=== PATIENT | female | born 1990 | race Caucasian/White ===

== ENCOUNTER 2020-06-09 10:30 | Inpatient (IN) | payer OTHER ==
[2020-06-09 11:25] VITALS: BMI 32.9
[2020-06-09] MEDS ORDERED: ELECTROLYTE-148 SOLN 1,000 ML IV SCH (13:30)
[2020-06-09] MEDS ORDERED: DEXTROSE 5%-LACTATED RINGERS 1,000 ML IV SCH (13:30)
[2020-06-09] MEDS ORDERED: CITRIC ACID/SODIUM CITRATE 30 ML UNIT-DOSE CUP PO ONE (13:30)
[2020-06-09] MEDS ORDERED: ELECTROLYTE-148 SOLN 500 ML IV ONE (13:30)
--- NOTE | 2020-06-09 13:34 | HP ---
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: Alzheimer's, CVA, Dementia, Migraine, Multiple Sclerosis, Peripheral Neuropathy, Parkinson's, Seizure, Syncope, TIA, Vertigo, Other Cardiovascular: No: AFIB, Aneurysm, Aortic Insufficiency, Aortic Stenosis, CAD, CHF, Deep Vein Thrombosis, HTN, Hyperlipdemia, MT, Mitral Insufficiency, Mitral Stenosis, Murmur, Pulmonary Hypertension, Other Pulmonary: No: Asthma, Bronchitis, Cancer, COPD, O2 Dependent, Pneumonia, Previously Intubated, Pulmonary Embolus, Pulmonary Fibrosis, Sleep Apnea, Other Gastrointestinal: No: Ascites, Cancer, Constipation, Crohn's Disease, Diverticulitis, Diverticulosis, Esophageal Varices, Gastritis, GERD, GI Bleed, Hemorrhoids, Hiatal Hernia, Inflamatory Bowel Disease, Irritable Bowel Disease, Pancreatitis, Peptic Ulcer Disease, Ulcerative Colitis, Other Hepatobiliary: No: Cirrhosis, Cholelithiasis, Cholecystitis, Choledocholithiasis, Hepatitis A, Hepatitis B, Hepatitis C, Other Reproductive: No: Ectopic , Endometriosis, Fibroids, PID, Polycystic Ovary Syndrome, Postmenopausal, Other ...: 2 ...Para: 1 ...Term: 1 ...: 0 ...Spon : 0 ...Induced : 0 ...Living Children: 1 ...Multiple Gestation: 0 ...EDC by Sono: 06/25/20 Heme/Onc: No: Anemia, B12 Deficiency, Bleeding Disorder, Cancer, Current Chemotherapy, Current Radiation Therapy, Hemochromatosis, Hypercoaguable State, Myeloproliferative Synd, Sickle Cell Disease, Sickle Cell Trait, Thrombocytopenia, Other Infectious Disease: No: AIDS, C-Diff, Herpes Zoster, HIV, MRSA, STD's, Tuberculosis, VREF, Other Psych: No: Addictions, Anxiety, Bipolar, Depression, Panic, Psychosis, Schizophrenia, Other Musculoskeletal: No: Bursitis, Chronic low back pain, Hemiparesis, Hemiplegia, Osteoarthritis, Paraplegia, Other Rheumatology: No: Fibromyalgia, Gout, Lupus, Rheumatoid Arthritis, Sarcoidosis, Vasculitis, Other ENT: No: Allergic Rhinitis, Sinusitis, Other Endocrine: No: Lares's Disease, Erasto's Disease, Diabetes Insipidus, Diabetes Mellitus, Hyperparathyroidism, Hyperthyroidism, Hypothyroidism, Osteopenia, SIADH, Other Dermatology: No: Basal Cell, Cellulitis, Eczema, Melanoma, Psoriasis, Squamous Cell, Other - Past Surgical History Past Surgical History: Yes: Hx Myomectomy: No Hx Transabdominal Cerclage: No - Advance Directives Advance Directives: Yes: Living Will - Smoking History Smoking history: Never smoked Have you smoked in the past 12 months: No - Alcohol/Substance Use Hx Alcohol Use: No History of Substance Use: reports: None - Social History Usual Living Arrangement: Yes: With Significant Other Do you think of yourself as: Straight/Heterosexual ADL: Independent History of Recent Travel: No Home Medications - Allergies Allergies/Adverse Reactions: Allergies Allergy/AdvReac Type Severity Reaction Status Date / Time No Known Allergies Allergy Verified 06/09/20 11:15 - Home Medications Home Medications: Ambulatory Orders Pnv No.95/Ferrous Fum/Folic AC [ Vitamin Tablet] 1 each PO DAILY 06/09/20 Family Medical History Family History: Denies Review of Systems - Review of Systems Constitutional: reports: No Symptoms Eyes: reports: No Symptoms HENT: reports: No Symptoms Neck: reports: No Symptoms Cardiovascular: reports: No Symptoms Respiratory: reports: No Symptoms Gastrointestinal: reports: No Symptoms Genitourinary: reports: No Symptoms Breasts: reports: No Symptoms Reported Musculoskeletal: reports: No Symptoms Integumentary: reports: No Symptoms Neurological: reports: No Symptoms Endocrine: reports: No Symptoms Hematology/Lymphatic: reports: No Symptoms Psychiatric: reports: No Symptoms Physical Exam - Maternity Vital Signs: Vital Signs Temperature 98.0 F 06/09/20 10:30 Pulse Rate 107 H 06/09/20 10:30 Respiratory Rate 18 06/09/20 10:30 Blood Pressure 108/82 06/09/20 10:30 O2 Sat by Pulse Oximetry (%) Constitutional: Yes: Well Nourished, No Distress, Calm Eyes: Yes: WNL, Conjunctiva Clear, EOM Intact HENT: Yes: WNL, Atraumatic, Normocephalic Neck: Yes: WNL, Supple, Trachea Midline Cardiovascular: Yes: WNL, Regular Rate and Rhythm Lungs: Clear to auscultation Breast(s): Yes: WNL - Abdominal Exam/OB Number of Fetuses: Single Presentation: Vertex Contractions: Yes Regularity: Irregular Intensity: Mild/Mod Monitor Mode: External Heart Rate (range): 150 Heart Rate Location: [facility] Category: I Accelerations: Uniform Decelerations: None - Vaginal Exam/OB Vaginal Bleeding: No Hemorrhage Risk Assessment - Risk Factors Medium Risk Factors: Yes: Prior , uterine surgery,or multiple laparotomies High Risk Factors: Yes: None Risk Score: 1 Risk Level: Medium Risk Assessment/Plan for repeat lt c s twin
[2020-06-09] MEDS ORDERED: morphine SULFATE/PF 0.5 MG/ML (2cc Syringe - QUVA) ONE (16:27)
[2020-06-09] MEDS ORDERED: KETOROLAC TROMETHAMINE 30 MG/1 ML VIAL ONE (17:36)
[2020-06-09] MEDS ORDERED: OXYTOCIN 10 UNITS/ML VIAL ONE (18:13)
[2020-06-09] MEDS ORDERED: ONDANSETRON 4 MG/2 ML VIAL IVPUSH PRN (18:46)
[2020-06-09] MEDS ORDERED: SENNOSIDES/DOCUSATE COMBO (SENNA PLUS) TABLET (UD) PO PRN (18:57)
[2020-06-09] MEDS ORDERED: oxyCODONE HCL 5 MG TABLET PO PRN ×2 (18:57)
[2020-06-09] MEDS ORDERED: IBUPROFEN 800 MG/8 ML IJ IVPB PRN (18:57)
--- NOTE | 2020-06-09 18:57 | OP ---
Operative Note - Note: Operative Date: 06/09/20 Pre-Operative Diagnosis: twin, vx transverse, repeat lt c s Operation: repeat lt c s Findings: vertex, transverse , Post-Operative Diagnosis: Same as Pre-op Surgeon: Nicolas Vasquez Boom Boss: Edgard Alejo Anesthesia: Spinal Estimated Blood Loss (mls): 800 (di-di twin , no adhesion, ) Operative Report Dictated: Yes
[2020-06-09] MEDS ORDERED: OXYTOCIN 20 UNITS in 0.9% NS 20 UNIT/1,000 ML INFUS.BAG IV SCH (19:00)
[2020-06-09 19:48] LABS: COCAINE, UR NEGATIVE ng/ml (CUTOFF=300); METHADONE, UR NEGATIVE ng/ml (CUTOFF=300); OPIATES, URI NEGATIVE ng/ml (CUTOFF=300); PHENCYCLIDINE,URINE NEGATIVE ng/ml (CUTOFF=25); URINE BARBITURATES NEGATIVE ng/ml (CUTOFF=200); URINE BENZODIAZEPINES NEGATIVE ng/ml (CUTOFF=200)
[2020-06-09 19:52] LABS: URINE AMPHETAMINES NEGATIVE ng/ml (CUTOFF=500)
[2020-06-09] MEDS: METHYLERGONOVINE MALEATE 0.2 MG/1 ML AMP IM PRN (23:46)
[2020-06-10] MEDS: METHYLERGONOVINE MALEATE 0.2 MG/1 ML AMP IM PRN (06:39)
[2020-06-10 08:37] LABS: BASO % 0.3 % (0-2.0); EOS % 0.7 % (0-4.5); HEMATOCRIT 31.8 % (32.4-45.2); HEMOGLOBIN 10.7 GM/dL (10.7-15.3); LYMPH % 7.8 % (8-40); MCH 29.7 pg (25.7-33.7); MCHC 33.7 g/dl (32.0-36.0); MEAN CELL VOLUME 88.1 fl (80-96); MEAN PLT VOLUME 10.1 fl (7.5-11.1); NEUT % 82.2 % (42.8-82.8); PLATELET COUNT 107 K/MM3 (134-434); RDW 12.7 % (11.6-15.6); WHITE BLOOD COUNT 12.9 K/mm3 (4.0-10.0)
[2020-06-10] MEDS: IBUPROFEN 600 MG TABLET (FP) PO PRN ×2 (14:40→20:30)
[2020-06-10] MEDS: ACETAMINOPHEN 325 MG TABLET (FP) PO PRN ×2 (14:40→20:30)
[2020-06-10] MEDS: SIMETHICONE 80 MG TAB.CHEW (FP) PO PRN ×2 (14:40→20:30)
[2020-06-10] MEDS: PRENATAL VITAMINS W/ FOLIC ACID TABLET (FP) PO SCH (14:40)
--- NOTE | 2020-06-10 15:22 | PN ---
Post Progress Note Post Day: 1 Type of Delivery: Repeat C/S Vital Signs: Vital Signs Temperature 98.2 F 06/10/20 14:00 Pulse Rate 89 06/10/20 14:00 Respiratory Rate 18 06/10/20 14:00 Blood Pressure 108/67 06/10/20 14:00 O2 Sat by Pulse Oximetry (%) 100 06/09/20 19:20 Breast Exam: Yes: Soft Uterus: Yes: Fundus Firm, Fundus below umbilicus Incision: Yes: Dressing dry and intact, Sutures intact Abdomen/GI: Yes: Abdomen soft, Passing flatus, Tolerating PO Lochia: Yes: Serosa Lochia, amount: Small Extremities: Yes: Calves non-tender Perineum: Yes: Intact Activity: Ambulating - Labs Labs: CBC WBC 12.9 K/mm3 (4.0-10.0) H 06/10/20 07:45 RBC 3.60 M/mm3 (3.60-5.2) 06/10/20 07:45 Hgb 10.7 GM/dL (10.7-15.3) 06/10/20 07:45 Hct 31.8 % (32.4-45.2) L 06/10/20 07:45 MCV 88.1 fl (80-96) 06/10/20 07:45 MCH 29.7 pg (25.7-33.7) 06/10/20 07:45 MCHC 33.7 g/dl (32.0-36.0) 06/10/20 07:45 RDW 12.7 % (11.6-15.6) 06/10/20 07:45 Plt Count 107 K/MM3 (134-434) L D 06/10/20 07:45 MPV 10.1 fl (7.5-11.1) 06/10/20 07:45 Absolute Neuts (auto) 10.6 K/mm3 (1.5-8.0) H 06/10/20 07:45 Neutrophils % 82.2 % (42.8-82.8) 06/10/20 07:45 Lymphocytes % 7.8 % (8-40) L D 06/10/20 07:45 Monocytes % 9.0 % (3.8-10.2) 06/10/20 07:45 Eosinophils % 0.7 % (0-4.5) 06/10/20 07:45 Basophils % 0.3 % (0-2.0) 06/10/20 07:45 Nucleated RBC % 0 % (0-0) 06/10/20 07:45 Assessment/Plan dc pt home on moday, doing well
--- NOTE | 2020-06-10 15:26 | DS ---
Physical Exam-FILING CLERK Vital Signs: Vital Signs Temperature 98.2 F 06/10/20 14:00 Pulse Rate 89 06/10/20 14:00 Respiratory Rate 18 06/10/20 14:00 Blood Pressure 108/67 06/10/20 14:00 O2 Sat by Pulse Oximetry (%) 100 06/09/20 19:20 Constitutional: Yes: Well Nourished, No Distress, Calm Eyes: Yes: WNL, Conjunctiva Clear, EOM Intact HENT: Yes: WNL, Atraumatic, Normocephalic Neck: Yes: WNL, Supple, Trachea Midline Cardiovascular: Yes: WNL, Regular Rate and Rhythm Respiratory: Yes: WNL, Regular, CTA Bilaterally Gastrointestinal: Yes: WNL, Normal Bowel Sounds, Soft ...Rectal Exam: Yes: WNL Renal/: Yes: WNL Pelvis: Yes: WNL External Genitalia: Yes: Normal Internal Exam Deferred: Yes Vaginal Exam: Yes: Normal Cervix: Yes: Normal Uterus: Yes: Normal Adnexa: Normal: Bilateral ....Post : Yes: Uterus firm, Uterus non-tender Breast(s): Yes: WNL Musculoskeletal: Yes: WNL Extremities: Yes: WNL Edema: Yes Integumentary: Yes: WNL Wound/Incision: Yes: Clean/Dry, Well Approximated Neurological: Yes: WNL, Alert, Oriented ...Motor Strength: WNL Psychiatric: Yes: WNL, Alert, Oriented Labs: CBC, BMP 06/10/20 07:45 Delivery - Delivery Section: Repeat Type of Anesthesia: Spinal Episiotomy/Laceration: None EBL (cc): 800 Delivery, Single - [place] Feeding Plan Initial Plan: Elected not to breastfeed exclusively throughout hospitalization Delivery, Multiple Births - Stages of Labor Delivery Baby "A" Date: 06/09/20 Time: 17:42 Delivery Baby "B" Date: 06/09/20 Time: 17:43 Placenta/Membranes "A" Date: 06/09/20 Time: 17:45 Placenta/Membranes "B" Date: 06/09/20 Time: 17:45 - Condition of Multiple Births [place] 1 (A) Athletic Coach/Firing Pin Gauger Present: Yes Athletic Coach: Marycruz Tran Gender: Male Weight: 2.381 kg Total Hours ROM (HRS/MINS): 4min [place] 2 (B) Athletic Coach/Firing Pin Gauger Present: Yes Athletic Coach: Marycruz Tran Gender: Female Weight: 2.353 kg Total Hours ROM (HRS/MINS): 3min - [place] 1 (A) 1 Minute Score: 8 [place] 1 (A) 5 Minutes Score: 9 [place] 2 (B) 1 Minute Score: 9 [place] 2 (B) 5 Minutes Score: 9 Discharge Summary Problems reviewed: Yes Reason For Visit: TWINS Procedures: Principal: repeat lt c s Condition: Good - Instructions Diet, Activity, Other Instructions: Physical activity Resume your normal everyday activity as tolerated no heavy lifting or exercise until seen by your surgeon. You may walk unlimited geraldo of and climb stairs. You may resume driving the car when you feel safe and comfortable behind the wheel. No sexual activity as instructed. Wound care If you have a bandage, leave it on, and keep dry for 48-72 hours. After that time discard the outer bandage. If they are tapes on the skin under the out of bandage leave them in place. They will peel off in the next 7 to 10 days. Do Not Peel them off. You may shower the day after surgery. If there are tapes present on the skin, you may shower over them. Diet There are no dietary restrictions. Eat healthy, high-fiber foods. Drink 6 to 8 glasses of liquid each day. This will assist in keeping your bowels are regular. Pain management You may take Tylenol or acetaminophen or Ibuprofen (for example, Motrin, Advil etc.) from my pain prescription medication is ordered should be taken as prescribed for moderate to severe pain. Call MD for any of the following:call dr howell for 2 weeks appointment Severe pain not relieved by medication Fever of 101 or higher Excessive bleeding or drainage on dressing Inability to urinate Disposition: HOME - Home Medications Comprehensive Discharge Medication List: Ambulatory Orders Pnv No.95/Ferrous Fum/Folic AC [ Vitamin Tablet] 1 each PO DAILY 06/09/20 Prescription Drug Monitoring Program (I-STOP) results: I-STOP reviewed and no issues identified
[2020-06-10] MEDS ORDERED: BISACODYL 10 MG SUPP.RECT RC PRN (18:58)
[2020-06-11] MEDS: ACETAMINOPHEN 325 MG TABLET (FP) PO PRN ×2 (06:32→16:55)
[2020-06-11] MEDS: SIMETHICONE 80 MG TAB.CHEW (FP) PO PRN (06:32)
[2020-06-11] MEDS: IBUPROFEN 600 MG TABLET (FP) PO PRN ×2 (06:34→16:54)
[2020-06-11] MEDS: PRENATAL VITAMINS W/ FOLIC ACID TABLET (FP) PO SCH (09:54)
--- NOTE | 2020-06-11 14:01 | PN ---
Progress Note (short form) - Note Progress Note: 29 F s/p C/S +DM. pt doing well. pain controlled. good reuslt of anesthetic care
[2020-06-12] MEDS: IBUPROFEN 600 MG TABLET (FP) PO PRN (06:16)
[2020-06-12] MEDS: ACETAMINOPHEN 325 MG TABLET (FP) PO PRN (06:17)
[2020-06-12] MEDS: SIMETHICONE 80 MG TAB.CHEW (FP) PO PRN (06:18)
--- NOTE | 2020-06-12 07:35 | PN ---
Post Progress Note Post Day: 3 Type of Delivery: Repeat C/S Vital Signs: Vital Signs Temperature 97.6 F 06/11/20 21:55 Pulse Rate 68 06/11/20 21:55 Respiratory Rate 18 06/11/20 21:55 Blood Pressure 113/71 06/11/20 21:55 O2 Sat by Pulse Oximetry (%) 98 06/11/20 21:55 Breast Exam: Yes: Soft Uterus: Yes: Fundus Firm, Fundus below umbilicus Incision: Yes: Dressing dry and intact, Sutures intact Abdomen/GI: Yes: Abdomen soft, Passing flatus, Tolerating PO Lochia: Yes: Serosa Lochia, amount: Small Extremities: Yes: Calves non-tender Perineum: Yes: Intact Activity: Ambulating (dc pt home todat, will see p[facility] consult, 7th grade social studies teacher ) - Labs Labs: CBC WBC 12.9 K/mm3 (4.0-10.0) H 06/10/20 07:45 RBC 3.60 M/mm3 (3.60-5.2) 06/10/20 07:45 Hgb 10.7 GM/dL (10.7-15.3) 06/10/20 07:45 Hct 31.8 % (32.4-45.2) L 06/10/20 07:45 MCV 88.1 fl (80-96) 06/10/20 07:45 MCH 29.7 pg (25.7-33.7) 06/10/20 07:45 MCHC 33.7 g/dl (32.0-36.0) 06/10/20 07:45 RDW 12.7 % (11.6-15.6) 06/10/20 07:45 Plt Count 107 K/MM3 (134-434) L D 06/10/20 07:45 MPV 10.1 fl (7.5-11.1) 06/10/20 07:45 Absolute Neuts (auto) 10.6 K/mm3 (1.5-8.0) H 06/10/20 07:45 Neutrophils % 82.2 % (42.8-82.8) 06/10/20 07:45 Lymphocytes % 7.8 % (8-40) L D 06/10/20 07:45 Monocytes % 9.0 % (3.8-10.2) 06/10/20 07:45 Eosinophils % 0.7 % (0-4.5) 06/10/20 07:45 Basophils % 0.3 % (0-2.0) 06/10/20 07:45 Nucleated RBC % 0 % (0-0) 06/10/20 07:45
--- NOTE | 2020-06-12 09:10 | OP ---
DATE OF OPERATION: 06/09/2020 PREOPERATIVE DIAGNOSIS: Twin gestational malpresentation, vertex and a breech, and repeat low transverse section. POSTOPERATIVE DIAGNOSIS: Twin gestational malpresentation, vertex and transverse, diamniotic dichorionic twin and repeat section in labor. PROCEDURE: Repeat low transverse section. SURGEON: Nicolas Davis MD PROGRESSIVE CARE MANAGER: MERY Sorto ANESTHESIA: Spinal. ANESTHESIOLOGIST: Ayaz Coronado MD INDICATION: This is a 29-year-old female patient 38-week , twin gestational, diamniotic dichorionic twin with a vertex and a transverse transposition and the patient also had previous , so patient is taken to OR for repeat low transverse section. PROCEDURE: So, patient was placed on the operating table in the supine position after spinal anesthesia was obtained. The patient's abdomen and pelvis were prepped and draped in the usual sterile manner. Pfannenstiel incision was made. Incision was made through skin, subcutaneous tissue until the fascia was nicked in the midline. The fascia was extended bilaterally. Intraperitoneal cavity was entered. No bladder flap was created. Low transverse segment was entered. Twin A artificial rupture of membrane was performed and delivered from vertex presentation. There was a cord around the neck x1. Baby was handed over to flower pot press operator after umbilical cord doubly clamped and cut. Then we proceeded to twin B where artificial rupture of membrane was done. Then baby was transverse and we turned it into vertex and baby was delivered from vertex presentation. Baby was handed over to flower pot press operator after umbilical cord doubly clamped and cut. Twin A is a boy. Twin B is a girl. After the placenta was removed, the uterus was closed in single layer, first layer interlocking Vicryl sutures. Good hemostasis. Both gutters cleaned. Both ovaries, fallopian tubes, uterus were within normal limits. No complications. Tolerated procedure well. Draining clear urine. Peritoneum was closed. Fascia was closed. Skin was closed. Transferred to recovery room in stable condition. NICOLAS DAVIS MD [id number]
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
[2020-06-12 09:54] VITALS: BP 123/65; PULSE 73; TEMP 97.7
[2020-06-12] MEDS: PRENATAL VITAMINS W/ FOLIC ACID TABLET (FP) PO SCH (10:53)
--- NOTE | 2020-06-15 17:51 | PATH ---
Surgical Pathology Report Patient Name: WALTER FIGUEROA [facility]. Rec. #: [id number] /Age/Gender: 1990 (Age: 29) / F Account: [id number] Location: [facility] OBS/IV TECHNICIAN Taken: 06/09/2020 Received: 06/12/2020 Reported: 06/15/2020 Physicians: Nicolas Vasquez MD Specimen(s) Received PLACENTA Clinical History , 37.5 weeks, history of chronic bronchitis Final Diagnosis PLACENTA, SECTION: SEPARATE DISCS TWIN PLACENTA. PLACENTA A, 365 G THIRD TRIMESTER PLACENTA WITH TRIVASCULAR UMBILICAL CORD AND UNREMARKABLE PLACENTAL MEMBRANES. PLACENTA B, 382 G THIRD TRIMESTER PLACENTA WITH TRIVASCULAR UMBILICAL CORD AND UNREMARKABLE PLACENTAL MEMBRANES. Electronically Signed Doreen Francois M.D. Gross Description Received in formalin labeled "placenta," is a twin placenta comprised of 2 separate discs, joined by a dividing membranes. There is a 1 clamp marking the umbilical cord arbitrarily designated placenta "A" and 2 clamps marking the umbilical cord of arbitrarily designated placenta "B". Placenta "A" is 365 g and measures 17.0 x 13.0 x 2.2 cm. The attached membranes are arroyo, translucent with focal opacities and insert marginally. The umbilical cord measures 29 cm in length and averages 1 cm in diameter. The cord inserts eccentrically, 5 cm to the nearest margin. No true knots or strictures are identified. The cut surface of the umbilical cord reveals 3 vessels. The surface is rogers blue with minimal fibrin deposition and appropriate caliber vessels. The maternal surface is red-brown with focal defects. Sectioning reveals red-brown, spongy parenchyma. No lesions are identified. Placenta "B" is 382 g and measures 18.5 x 12.5 x 2.3 cm. The attached membranes are arroyo, translucent with focal opacities and insert marginally. The umbilical cord measures 24.5 cm in length and averages 1 cm in diameter. The cord inserts eccentrically, 3.5 cm to the nearest margin. No true knots or strictures are identified. Cut surface of the umbilical cord reveals 3 vessels. The surface is rogers blue with minimal fibrin deposition and appropriate caliber vessels. The maternal surface is red-brown with focal defects. Sectioning reveals red-brown, spongy parenchyma. No lesions are identified. Intervention Teacher sections are submitted in 7 cassettes as follows: 1-placenta "A" membrane roll and umbilical cord; 2-3-full thickness sections of placenta "A"; 4-dividing membranes; 5-placenta "B" membrane roll and umbilical cord; 6-7-full thickness sections of placenta "B". 06/14/2020 [facility]06/14/2020
== END 2020-06-12 16:00 | disposition home or self-care (01) | DRG 540 ==
LOC: JLDR 10:30 → J3W 21:00
PROVIDERS: ADMIT Obstetrics & Gynecology; ATTEND Obstetrics & Gynecology
PROC: 10D00Z1 Extraction of Products of Conception, Low, Open Approach (ICD-10-PCS; principal; 2020-06-09)
PROC: 10907ZC Drainage of Amniotic Fluid, Therapeutic from Products of Conception, Via Natural or Artificial Opening (ICD-10-PCS; 2020-06-09)
DX: O30.043 Twin pregnancy, dichorionic/diamniotic, third trimester (principal); Z37.2 Twins, both liveborn; O32.2XX1 Maternal care for transverse and oblique lie, fetus 1; O34.211 Maternal care for low transverse scar from previous cesarean delivery; O69.81X1 Labor and delivery complicated by cord around neck, without compression, fetus 1; Z3A.37 37 weeks gestation of pregnancy; Z86.59 Personal history of other mental and behavioral disorders
CPT/HCPCS: 36415; 80307; 85025; 88307-TC

== ENCOUNTER 2020-07-26 10:24 | Inpatient (IN) | payer OTHER ==
[2020-07-26 14:16] VITALS: BMI 32.5
[2020-07-26] MEDS ORDERED: ALBUTEROL SO4 HFA INHALER IH PRN (14:48)
[2020-07-26] MEDS ORDERED: P-EPHED 60MG/TRIPROLIDI 2.5MG TABLET PO PRN (14:49)
[2020-07-26] MEDS ORDERED: LOPERAMIDE HCL 2 MG CAPSULE PO PRN (14:49)
[2020-07-26] MEDS ORDERED: guaiFENesin 200 MG/10 ML 10 ML UNIT-DOSE CUPS PO PRN (14:49)
[2020-07-26] MEDS ORDERED: ACETAMINOPHEN 325 MG TABLET (FP) PO PRN (14:49)
[2020-07-26] MEDS ORDERED: MAG HYDROX/AL HYDROX/SIMETH 30 ML UNIT-DOSE CUP PO PRN (14:49)
[2020-07-26] MEDS ORDERED: MAGNESIUM HYDROX 2400MG/30ML ORAL SUSPENSION 30 ML CUP PO PRN (14:49)
[2020-07-26] MEDS ORDERED: IBUPROFEN 400 MG TABLET (FP) PO PRN (14:49)
[2020-07-26] MEDS ORDERED: MAGNESIUM CITRATE 300 ML BOTTLE PO PRN (14:49)
[2020-07-26] MEDS: NICOTINE 21 MG/24 HOURS TOPICAL PATCH TD SCH (16:28)
[2020-07-26] MEDS: NICOTINE POLACRILEX 2 MG GUM BUC PRN (16:29)
[2020-07-26 17:31] LABS: CALCIUM 8.9 mg/dL (8.5-10.1); HEMATOCRIT 36.5 % (32.4-45.2); HEMOGLOBIN 11.9 GM/dL (10.7-15.3); MCH 29.3 pg (25.7-33.7); MCHC 32.6 g/dl (32.0-36.0); MEAN CELL VOLUME 89.9 fl (80-96); MEAN PLT VOLUME 9.2 fl (7.5-11.1); PLATELET COUNT 217 K/MM3 (134-434); RBC 4.06 M/mm3 (3.60-5.2); RDW 14.8 % (11.6-15.6); WHITE BLOOD COUNT 10.6 K/mm3 (4.0-10.0)
[2020-07-26 17:32] LABS: ALBUMIN 3.2 g/dl (3.4-5.0); BLOOD UREA NITROGEN 14.4 mg/dL (7-18)
[2020-07-26 17:35] LABS: CREATININE 0.7 mg/dL (0.55-1.3)
[2020-07-26 17:36] LABS: BILIRUBIN,TOTAL 0.2 mg/dL (0.2-1); TOT PROT 6.5 g/dl (6.4-8.2)
[2020-07-26 18:38] LABS: HIV INTERPRETATION NEGATIVE (NEGATIVE)
[2020-07-26] MEDS: hydrOXYzine PAMOATE 25 MG CAPSULE (FP) PO SCH ×2 (19:06→21:22)
[2020-07-26 20:11] LABS: SICKLE CELL SCREEN NEGATIVE (NEGATIVE)
[2020-07-26] MEDS: MELATONIN 5 MG TABLETS PO SCH (21:21)
[2020-07-26] MEDS: SUVOREXANT 10 MG TABLET PO PRN (21:22)
[2020-07-26] MEDS: THIAMINE HCL 100 MG TABLET (FP) PO SCH (21:23)
[2020-07-27] MEDS: hydrOXYzine PAMOATE 25 MG CAPSULE (FP) PO SCH ×3 (06:41→13:40)
[2020-07-27] MEDS: NICOTINE 21 MG/24 HOURS TOPICAL PATCH TD SCH (09:02)
[2020-07-27] MEDS: PRENATAL VITAMINS W/ FOLIC ACID TABLET (FP) PO SCH (09:03)
[2020-07-27] MEDS: NICOTINE POLACRILEX 2 MG GUM BUC PRN ×2 (09:04→18:38)
[2020-07-27] MEDS: THIAMINE HCL 100 MG TABLET (FP) PO SCH (21:10)
[2020-07-27] MEDS: hydrOXYzine PAMOATE 25 MG CAPSULE (FP) PO PRN (21:10)
[2020-07-27] MEDS: MELATONIN 5 MG TABLETS PO SCH (21:10)
[2020-07-27] MEDS: SUVOREXANT 10 MG TABLET PO PRN (21:10)
[2020-07-28] MEDS: NICOTINE POLACRILEX 2 MG GUM BUC PRN ×2 (08:49→17:41)
[2020-07-28] MEDS: PRENATAL VITAMINS W/ FOLIC ACID TABLET (FP) PO SCH (10:02)
[2020-07-28] MEDS: NICOTINE 21 MG/24 HOURS TOPICAL PATCH TD SCH (10:02)
[2020-07-28 17:06] LABS: EPI CELLS >36 /uL (0-25.1); HYALINE CASTS 5 /uL (0-3.1); URINE APPEARANCE CLEAR; URINE BACTERIA 1791 /uL (0-1359); URINE BILIRUBIN NEGATIVE (NEGATIVE); URINE COLOR YELLOW; URINE GLUCOSE (UA) NEGATIVE (NEGATIVE); URINE KETONE NEGATIVE (NEGATIVE); URINE LEUK ESTERASE 1+ (NEGATIVE); URINE NITRITE NEGATIVE (NEGATIVE); URINE PROTEIN NEGATIVE (NEGATIVE); URINE RBC 2 /uL (0-23.9); URINE UROBILINOGEN 0.2 mg/dL (0.2-1.0); URINE WBC 51 /uL (0-25.8)
[2020-07-28] MEDS: hydrOXYzine PAMOATE 25 MG CAPSULE (FP) PO PRN (21:04)
[2020-07-28] MEDS: THIAMINE HCL 100 MG TABLET (FP) PO SCH (21:04)
[2020-07-28] MEDS: MELATONIN 5 MG TABLETS PO SCH (21:04)
[2020-07-28] MEDS: SUVOREXANT 10 MG TABLET PO PRN (21:04)
[2020-07-29] MEDS: PRENATAL VITAMINS W/ FOLIC ACID TABLET (FP) PO SCH (09:05)
[2020-07-29] MEDS: NICOTINE 21 MG/24 HOURS TOPICAL PATCH TD SCH (09:05)
[2020-07-29] MEDS: NICOTINE POLACRILEX 2 MG GUM BUC PRN ×3 (13:09→21:42)
[2020-07-29] MEDS: THIAMINE HCL 100 MG TABLET (FP) PO SCH (21:38)
[2020-07-29] MEDS: MELATONIN 5 MG TABLETS PO SCH (21:38)
[2020-07-29] MEDS: hydrOXYzine PAMOATE 25 MG CAPSULE (FP) PO PRN (21:39)
[2020-07-29] MEDS ORDERED: SUVOREXANT 10 MG TABLET PO PRN (22:00)
[2020-07-30] MEDS: NICOTINE 21 MG/24 HOURS TOPICAL PATCH TD SCH (10:23)
[2020-07-30] MEDS: PRENATAL VITAMINS W/ FOLIC ACID TABLET (FP) PO SCH (10:23)
[2020-07-30] MEDS: NICOTINE POLACRILEX 2 MG GUM BUC PRN ×2 (14:09→21:06)
[2020-07-30] MEDS: MELATONIN 5 MG TABLETS PO SCH (21:06)
[2020-07-30] MEDS: THIAMINE HCL 100 MG TABLET (FP) PO SCH (21:06)
[2020-07-31] MEDS: NICOTINE 21 MG/24 HOURS TOPICAL PATCH TD SCH (09:49)
[2020-07-31] MEDS: PRENATAL VITAMINS W/ FOLIC ACID TABLET (FP) PO SCH (09:49)
[2020-07-31] MEDS: NICOTINE POLACRILEX 2 MG GUM BUC PRN ×3 (12:43→21:51)
[2020-07-31] MEDS: MELATONIN 5 MG TABLETS PO SCH (21:50)
[2020-07-31] MEDS: hydrOXYzine PAMOATE 25 MG CAPSULE (FP) PO PRN (21:50)
[2020-07-31] MEDS: THIAMINE HCL 100 MG TABLET (FP) PO SCH (21:50)
[2020-08-01] MEDS: NICOTINE 21 MG/24 HOURS TOPICAL PATCH TD SCH (10:11)
[2020-08-01] MEDS: PRENATAL VITAMINS W/ FOLIC ACID TABLET (FP) PO SCH (10:11)
[2020-08-01] MEDS: NICOTINE POLACRILEX 2 MG GUM BUC PRN (17:48)
[2020-08-01] MEDS: THIAMINE HCL 100 MG TABLET (FP) PO SCH (21:37)
[2020-08-01] MEDS: MELATONIN 5 MG TABLETS PO SCH (21:37)
[2020-08-01] MEDS: hydrOXYzine PAMOATE 25 MG CAPSULE (FP) PO PRN (21:38)
[2020-08-01] MEDS: SUVOREXANT 10 MG TABLET PO PRN (23:50)
[2020-08-01] MEDS ORDERED: PT OWN MED DRAWER 7, Y5N ONE (23:51)
[2020-08-02] MEDS: PRENATAL VITAMINS W/ FOLIC ACID TABLET (FP) PO SCH (09:15)
[2020-08-02] MEDS: NICOTINE 21 MG/24 HOURS TOPICAL PATCH TD SCH (09:15)
[2020-08-02] MEDS: NICOTINE POLACRILEX 2 MG GUM BUC PRN ×2 (09:15→14:57)
[2020-08-02] MEDS: SUVOREXANT 10 MG TABLET PO PRN (21:12)
[2020-08-02] MEDS: THIAMINE HCL 100 MG TABLET (FP) PO SCH (21:12)
[2020-08-02] MEDS: hydrOXYzine PAMOATE 25 MG CAPSULE (FP) PO PRN (21:12)
[2020-08-02] MEDS: MELATONIN 5 MG TABLETS PO SCH (21:12)
[2020-08-03] MEDS: PRENATAL VITAMINS W/ FOLIC ACID TABLET (FP) PO SCH (09:44)
[2020-08-03] MEDS: NICOTINE 21 MG/24 HOURS TOPICAL PATCH TD SCH (09:45)
[2020-08-03] MEDS: NICOTINE POLACRILEX 2 MG GUM BUC PRN ×3 (13:03→21:14)
[2020-08-03] MEDS ORDERED: PT OWN MED DRAWER 7, Y5N ONE (14:37)
[2020-08-03] MEDS: SUVOREXANT 10 MG TABLET PO PRN (21:13)
[2020-08-03] MEDS: THIAMINE HCL 100 MG TABLET (FP) PO SCH (21:13)
[2020-08-03] MEDS: MELATONIN 5 MG TABLETS PO SCH (21:13)
[2020-08-03] MEDS: hydrOXYzine PAMOATE 25 MG CAPSULE (FP) PO PRN (21:13)
[2020-08-04] MEDS: NICOTINE 21 MG/24 HOURS TOPICAL PATCH TD SCH (09:19)
[2020-08-04] MEDS: NICOTINE POLACRILEX 2 MG GUM BUC PRN ×3 (09:19→20:10)
[2020-08-04] MEDS: PRENATAL VITAMINS W/ FOLIC ACID TABLET (FP) PO SCH (09:19)
[2020-08-04] MEDS: SUVOREXANT 15 MG TABLET PO PRN (21:23)
[2020-08-04] MEDS: MELATONIN 5 MG TABLETS PO SCH (21:24)
[2020-08-04] MEDS: THIAMINE HCL 100 MG TABLET (FP) PO SCH (21:24)
[2020-08-05] MEDS: NICOTINE 21 MG/24 HOURS TOPICAL PATCH TD SCH (10:43)
[2020-08-05] MEDS: PRENATAL VITAMINS W/ FOLIC ACID TABLET (FP) PO SCH (10:43)
[2020-08-05] MEDS: hydrOXYzine PAMOATE 25 MG CAPSULE (FP) PO PRN (10:52)
[2020-08-05] MEDS: MELATONIN 5 MG TABLETS PO SCH (21:45)
[2020-08-05] MEDS: THIAMINE HCL 100 MG TABLET (FP) PO SCH (21:45)
[2020-08-05] MEDS: SUVOREXANT 15 MG TABLET PO PRN (21:46)
[2020-08-05] MEDS: NICOTINE POLACRILEX 2 MG GUM BUC PRN (21:48)
[2020-08-06] MEDS: PRENATAL VITAMINS W/ FOLIC ACID TABLET (FP) PO SCH (09:43)
[2020-08-06] MEDS: NICOTINE 21 MG/24 HOURS TOPICAL PATCH TD SCH (09:44)
[2020-08-06] MEDS: NICOTINE POLACRILEX 2 MG GUM BUC PRN ×2 (09:44→20:03)
[2020-08-06] MEDS: hydrOXYzine PAMOATE 25 MG CAPSULE (FP) PO PRN ×2 (09:44→21:22)
[2020-08-06] MEDS: MELATONIN 5 MG TABLETS PO SCH (21:21)
[2020-08-06] MEDS: SUVOREXANT 15 MG TABLET PO PRN (21:21)
[2020-08-06] MEDS: THIAMINE HCL 100 MG TABLET (FP) PO SCH (21:21)
[2020-08-07] MEDS: PRENATAL VITAMINS W/ FOLIC ACID TABLET (FP) PO SCH (10:25)
[2020-08-07] MEDS: NICOTINE 21 MG/24 HOURS TOPICAL PATCH TD SCH (10:25)
[2020-08-07] MEDS: hydrOXYzine PAMOATE 25 MG CAPSULE (FP) PO PRN ×2 (10:25→21:43)
[2020-08-07] MEDS: NICOTINE POLACRILEX 2 MG GUM BUC PRN ×3 (14:17→21:03)
[2020-08-07] MEDS: MELATONIN 5 MG TABLETS PO SCH (21:41)
[2020-08-07] MEDS: THIAMINE HCL 100 MG TABLET (FP) PO SCH (21:42)
[2020-08-07] MEDS ORDERED: SUVOREXANT 15 MG TABLET PO PRN (22:00)
[2020-08-08] MEDS: PRENATAL VITAMINS W/ FOLIC ACID TABLET (FP) PO SCH (10:07)
[2020-08-08] MEDS: NICOTINE 21 MG/24 HOURS TOPICAL PATCH TD SCH (10:07)
[2020-08-08] MEDS: hydrOXYzine PAMOATE 25 MG CAPSULE (FP) PO PRN (10:07)
[2020-08-08] MEDS: NICOTINE POLACRILEX 2 MG GUM BUC PRN ×2 (10:08→21:50)
[2020-08-08] MEDS: THIAMINE HCL 100 MG TABLET (FP) PO SCH (21:23)
[2020-08-08] MEDS: MELATONIN 5 MG TABLETS PO SCH (21:23)
[2020-08-08] MEDS ORDERED: SUVOREXANT 20 MG TABLET PO PRN (22:00)
[2020-08-09 07:23] VITALS: BP 99/62; PULSE 68; TEMP 97.3
[2020-08-09] MEDS: PRENATAL VITAMINS W/ FOLIC ACID TABLET (FP) PO SCH (10:40)
[2020-08-09] MEDS: NICOTINE 21 MG/24 HOURS TOPICAL PATCH TD SCH (10:40)
== END 2020-08-09 11:30 | disposition home or self-care (01) | DRG 772 ==
LOC: YASAS 10:24 → Y3E 14:37 → Y3W 08-04 15:20
PROVIDERS: ADMIT Allergy & Immunology; ATTEND Allergy & Immunology
PROC: HZ42ZZZ Group Counseling for Substance Abuse Treatment, Cognitive-Behavioral (ICD-10-PCS; principal; 2020-07-26)
DX: F10.20 Alcohol dependence, uncomplicated (principal); F14.20 Cocaine dependence, uncomplicated; F16.20 Hallucinogen dependence, uncomplicated; F12.20 Cannabis dependence, uncomplicated; F17.210 Nicotine dependence, cigarettes, uncomplicated; F19.282 Other psychoactive substance dependence with psychoactive substance-induced sleep disorder; F19.24 Other psychoactive substance dependence with psychoactive substance-induced mood disorder; F41.9 Anxiety disorder, unspecified; F39 Unspecified mood [affective] disorder; F90.9 Attention-deficit hyperactivity disorder, unspecified type; G47.00 Insomnia, unspecified; J42 Unspecified chronic bronchitis; O90.89 Other complications of the puerperium, not elsewhere classified; Z91.410 Personal history of adult physical and sexual abuse; Z56.0 Unemployment, unspecified; Z59.0 Homelessness; Z87.09 Personal history of other diseases of the respiratory system
CPT/HCPCS: 36415; 80053; 81003; 81025; 85027; 85660; 86780; 87389; C9803; U0003

== ENCOUNTER 2021-04-10 11:21 | Inpatient (IN) | payer OTHER ==
[2021-04-10 14:55] VITALS: BMI 60.0
[2021-04-10] MEDS ORDERED: LOPERAMIDE HCL 2 MG CAPSULE PO PRN (16:25)
[2021-04-10] MEDS ORDERED: MAGNESIUM CITRATE 300 ML BOTTLE PO PRN (16:25)
[2021-04-10] MEDS ORDERED: guaiFENesin 200 MG/10 ML 10 ML UNIT-DOSE CUPS PO PRN (16:25)
[2021-04-10] MEDS ORDERED: P-EPHED 60MG/TRIPROLIDI 2.5MG TABLET PO PRN (16:25)
[2021-04-10] MEDS ORDERED: IBUPROFEN 400 MG TABLET (FP) PO PRN (16:25)
[2021-04-10] MEDS ORDERED: MAG HYDROX/AL HYDROX/SIMETH 30 ML UNIT-DOSE CUP PO PRN (16:25)
[2021-04-10] MEDS ORDERED: ACETAMINOPHEN 325 MG TABLET (FP) PO PRN (16:25)
[2021-04-10] MEDS ORDERED: MAGNESIUM HYDROX 2400MG/30ML ORAL SUSPENSION 30 ML CUP PO PRN (16:25)
[2021-04-10] MEDS ORDERED: ALBUTEROL SO4 HFA INHALER IH PRN (16:27)
[2021-04-10] MEDS: hydrOXYzine PAMOATE 25 MG CAPSULE (FP) PO SCH ×2 (18:07→21:11)
[2021-04-10] MEDS: NICOTINE 21 MG/24 HOURS TOPICAL PATCH TD SCH (18:08)
[2021-04-10] MEDS: NICOTINE POLACRILEX 2 MG GUM BC PRN (18:08)
[2021-04-10] MEDS: THIAMINE HCL 100 MG TABLET (FP) PO SCH (21:11)
[2021-04-10] MEDS: MELATONIN 5 MG TABLETS PO SCH (21:11)
[2021-04-10 23:04] LABS: EPI CELLS >36 /uL (0-25.1); HYALINE CASTS 5 /uL (0-3.1); PH,URINE 8.5 (5.0-8.0); URINE APPEARANCE CLOUDY; URINE BACTERIA 435 /uL (0-1359); URINE BILIRUBIN NEGATIVE (NEGATIVE); URINE COLOR YELLOW; URINE GLUCOSE (UA) NEGATIVE (NEGATIVE); URINE KETONE NEGATIVE (NEGATIVE); URINE LEUK ESTERASE 2+ (NEGATIVE); URINE NITRITE NEGATIVE (NEGATIVE); URINE PROTEIN TRACE (NEGATIVE); URINE RBC 8 /uL (0-23.9); URINE WBC 98 /uL (0-25.8)
[2021-04-11] MEDS: hydrOXYzine PAMOATE 25 MG CAPSULE (FP) PO SCH ×5 (07:10→21:32)
[2021-04-11 10:08] LABS: HEMATOCRIT 38.1 % (32.4-45.2); HEMOGLOBIN 12.5 GM/dL (10.7-15.3); MCH 27.8 pg (25.7-33.7); MCHC 32.9 g/dl (32.0-36.0); MEAN CELL VOLUME 84.7 fl (80-96); MEAN PLT VOLUME 9.9 fl (7.5-11.1); PLATELET COUNT 157 10^3/uL (134-434); RBC 4.49 M/mm3 (3.60-5.2); WHITE BLOOD COUNT 7.3 K/mm3 (4.0-10.0)
[2021-04-11] MEDS: PRENATAL VITAMINS W/ FOLIC ACID TABLET (FP) PO SCH (10:08)
[2021-04-11] MEDS: NICOTINE 21 MG/24 HOURS TOPICAL PATCH TD SCH (10:08)
[2021-04-11 10:18] LABS: CALCIUM 8.4 mg/dL (8.5-10.1)
[2021-04-11 10:19] LABS: ALBUMIN 3.2 g/dl (3.4-5.0); BLOOD UREA NITROGEN 15.1 mg/dL (7-18)
[2021-04-11 10:22] LABS: CREATININE 0.9 mg/dL (0.55-1.3)
[2021-04-11 10:24] LABS: BILIRUBIN,TOTAL 0.2 mg/dL (0.2-1); TOT PROT 6.3 g/dl (6.4-8.2)
[2021-04-11 14:37] LABS: HIV INTERPRETATION NEGATIVE (NEGATIVE)
[2021-04-11] MEDS: NICOTINE POLACRILEX 2 MG GUM BC PRN (17:44)
[2021-04-11] MEDS: THIAMINE HCL 100 MG TABLET (FP) PO SCH (21:32)
[2021-04-11] MEDS: MELATONIN 5 MG TABLETS PO SCH (21:32)
[2021-04-12] MEDS: hydrOXYzine PAMOATE 25 MG CAPSULE (FP) PO SCH ×5 (06:28→21:05)
[2021-04-12] MEDS: PRENATAL VITAMINS W/ FOLIC ACID TABLET (FP) PO SCH (09:58)
[2021-04-12] MEDS: NICOTINE 21 MG/24 HOURS TOPICAL PATCH TD SCH (09:58)
[2021-04-12] MEDS: NICOTINE POLACRILEX 2 MG GUM BC PRN (17:17)
[2021-04-12] MEDS: THIAMINE HCL 100 MG TABLET (FP) PO SCH (21:05)
[2021-04-12] MEDS: MELATONIN 5 MG TABLETS PO SCH (21:05)
[2021-04-13] MEDS: hydrOXYzine PAMOATE 25 MG CAPSULE (FP) PO SCH ×5 (06:31→21:27)
[2021-04-13] MEDS: NICOTINE 21 MG/24 HOURS TOPICAL PATCH TD SCH (09:55)
[2021-04-13] MEDS: PRENATAL VITAMINS W/ FOLIC ACID TABLET (FP) PO SCH (09:55)
[2021-04-13] MEDS ORDERED: metroNIDAZOLE 250 MG TABLET PO ONE (10:34)
[2021-04-13] MEDS: NICOTINE POLACRILEX 2 MG GUM BC PRN ×2 (16:40→19:29)
[2021-04-13] MEDS: MELATONIN 5 MG TABLETS PO SCH (21:27)
[2021-04-13] MEDS: THIAMINE HCL 100 MG TABLET (FP) PO SCH (21:27)
[2021-04-14] MEDS: hydrOXYzine PAMOATE 25 MG CAPSULE (FP) PO SCH ×5 (06:09→21:13)
[2021-04-14] MEDS: NICOTINE POLACRILEX 2 MG GUM BC PRN ×2 (10:17→18:07)
[2021-04-14] MEDS: PRENATAL VITAMINS W/ FOLIC ACID TABLET (FP) PO SCH (10:17)
[2021-04-14] MEDS: NICOTINE 21 MG/24 HOURS TOPICAL PATCH TD SCH (10:17)
[2021-04-14] MEDS: THIAMINE HCL 100 MG TABLET (FP) PO SCH (21:14)
[2021-04-14] MEDS: MELATONIN 5 MG TABLETS PO SCH (21:14)
[2021-04-15] MEDS: hydrOXYzine PAMOATE 25 MG CAPSULE (FP) PO SCH ×5 (06:21→21:32)
[2021-04-15] MEDS: NICOTINE 21 MG/24 HOURS TOPICAL PATCH TD SCH (10:12)
[2021-04-15] MEDS: PRENATAL VITAMINS W/ FOLIC ACID TABLET (FP) PO SCH (10:12)
[2021-04-15] MEDS: NICOTINE POLACRILEX 2 MG GUM BC PRN (18:52)
[2021-04-15] MEDS: MELATONIN 5 MG TABLETS PO SCH (21:32)
[2021-04-15] MEDS: THIAMINE HCL 100 MG TABLET (FP) PO SCH (21:32)
[2021-04-16] MEDS: hydrOXYzine PAMOATE 25 MG CAPSULE (FP) PO SCH ×5 (06:13→21:14)
[2021-04-16] MEDS: PRENATAL VITAMINS W/ FOLIC ACID TABLET (FP) PO SCH (09:38)
[2021-04-16] MEDS: NICOTINE POLACRILEX 2 MG GUM BC PRN ×2 (09:38→18:47)
[2021-04-16] MEDS: NICOTINE 21 MG/24 HOURS TOPICAL PATCH TD SCH (09:38)
[2021-04-16] MEDS: MELATONIN 5 MG TABLETS PO SCH (21:13)
[2021-04-16] MEDS: THIAMINE HCL 100 MG TABLET (FP) PO SCH (21:14)
[2021-04-17] MEDS: hydrOXYzine PAMOATE 25 MG CAPSULE (FP) PO SCH ×5 (06:17→21:25)
[2021-04-17] MEDS: NICOTINE 21 MG/24 HOURS TOPICAL PATCH TD SCH (10:20)
[2021-04-17] MEDS: PRENATAL VITAMINS W/ FOLIC ACID TABLET (FP) PO SCH (10:20)
[2021-04-17] MEDS: NICOTINE POLACRILEX 2 MG GUM BC PRN (12:37)
[2021-04-17] MEDS: THIAMINE HCL 100 MG TABLET (FP) PO SCH (21:25)
[2021-04-17] MEDS: MELATONIN 5 MG TABLETS PO SCH (21:25)
[2021-04-18] MEDS: hydrOXYzine PAMOATE 25 MG CAPSULE (FP) PO SCH ×5 (06:36→21:03)
[2021-04-18] MEDS: NICOTINE 21 MG/24 HOURS TOPICAL PATCH TD SCH (09:50)
[2021-04-18] MEDS: PRENATAL VITAMINS W/ FOLIC ACID TABLET (FP) PO SCH (09:50)
[2021-04-18] MEDS: NICOTINE POLACRILEX 2 MG GUM BC PRN (12:51)
[2021-04-18] MEDS: THIAMINE HCL 100 MG TABLET (FP) PO SCH (21:03)
[2021-04-18] MEDS: MELATONIN 5 MG TABLETS PO SCH (21:03)
[2021-04-18] MEDS: NICOTINE 10 MG CARTRIDGE (INHALER) IH PRN (21:05)
[2021-04-19] MEDS: hydrOXYzine PAMOATE 25 MG CAPSULE (FP) PO SCH ×5 (06:33→21:33)
[2021-04-19] MEDS: PRENATAL VITAMINS W/ FOLIC ACID TABLET (FP) PO SCH (10:18)
[2021-04-19] MEDS: NICOTINE POLACRILEX 2 MG GUM BC PRN (10:18)
[2021-04-19] MEDS: NICOTINE 21 MG/24 HOURS TOPICAL PATCH TD SCH (10:18)
[2021-04-19] MEDS: THIAMINE HCL 100 MG TABLET (FP) PO SCH (21:33)
[2021-04-19] MEDS: MELATONIN 5 MG TABLETS PO SCH (21:33)
[2021-04-20] MEDS: hydrOXYzine PAMOATE 25 MG CAPSULE (FP) PO SCH ×5 (06:25→21:27)
[2021-04-20] MEDS: NICOTINE POLACRILEX 2 MG GUM BC PRN (06:41)
[2021-04-20] MEDS: NICOTINE 21 MG/24 HOURS TOPICAL PATCH TD SCH (09:53)
[2021-04-20] MEDS: PRENATAL VITAMINS W/ FOLIC ACID TABLET (FP) PO SCH (09:53)
[2021-04-20] MEDS: NICOTINE 10 MG CARTRIDGE (INHALER) IH PRN ×3 (09:54→21:28)
[2021-04-20] MEDS: THIAMINE HCL 100 MG TABLET (FP) PO SCH (21:26)
[2021-04-20] MEDS: MELATONIN 5 MG TABLETS PO SCH (21:26)
[2021-04-20] MEDS: traZODone HCL 100 MG TABLET (FP) PO SCH (21:46)
[2021-04-21] MEDS: hydrOXYzine PAMOATE 25 MG CAPSULE (FP) PO SCH ×5 (07:01→21:30)
[2021-04-21] MEDS: NICOTINE 21 MG/24 HOURS TOPICAL PATCH TD SCH (09:36)
[2021-04-21] MEDS: PRENATAL VITAMINS W/ FOLIC ACID TABLET (FP) PO SCH (09:36)
[2021-04-21] MEDS: NICOTINE 10 MG CARTRIDGE (INHALER) IH PRN ×3 (10:21→21:44)
[2021-04-21] MEDS: NICOTINE POLACRILEX 2 MG GUM BC PRN (13:12)
[2021-04-21] MEDS: MELATONIN 5 MG TABLETS PO SCH (21:30)
[2021-04-21] MEDS: traZODone HCL 100 MG TABLET (FP) PO SCH (21:30)
[2021-04-21] MEDS: THIAMINE HCL 100 MG TABLET (FP) PO SCH (21:30)
[2021-04-22] MEDS: hydrOXYzine PAMOATE 25 MG CAPSULE (FP) PO SCH ×5 (07:07→21:11)
[2021-04-22] MEDS: PRENATAL VITAMINS W/ FOLIC ACID TABLET (FP) PO SCH (09:48)
[2021-04-22] MEDS: NICOTINE 10 MG CARTRIDGE (INHALER) IH PRN ×3 (09:48→17:49)
[2021-04-22] MEDS: NICOTINE 21 MG/24 HOURS TOPICAL PATCH TD SCH (09:49)
[2021-04-22] MEDS: THIAMINE HCL 100 MG TABLET (FP) PO SCH (21:11)
[2021-04-22] MEDS: traZODone HCL 100 MG TABLET (FP) PO SCH (21:11)
[2021-04-22] MEDS: MELATONIN 5 MG TABLETS PO SCH (21:11)
[2021-04-23] MEDS: hydrOXYzine PAMOATE 25 MG CAPSULE (FP) PO SCH ×5 (07:01→21:43)
[2021-04-23] MEDS: NICOTINE 21 MG/24 HOURS TOPICAL PATCH TD SCH (10:20)
[2021-04-23] MEDS: PRENATAL VITAMINS W/ FOLIC ACID TABLET (FP) PO SCH (10:20)
[2021-04-23] MEDS: NICOTINE 10 MG CARTRIDGE (INHALER) IH PRN ×4 (10:21→21:58)
[2021-04-23] MEDS: THIAMINE HCL 100 MG TABLET (FP) PO SCH (21:43)
[2021-04-23] MEDS: traZODone HCL 100 MG TABLET (FP) PO SCH (21:44)
[2021-04-23] MEDS: MELATONIN 5 MG TABLETS PO SCH (21:44)
[2021-04-24] MEDS: hydrOXYzine PAMOATE 25 MG CAPSULE (FP) PO SCH ×5 (06:32→21:17)
[2021-04-24] MEDS: NICOTINE 21 MG/24 HOURS TOPICAL PATCH TD SCH (09:44)
[2021-04-24] MEDS: PRENATAL VITAMINS W/ FOLIC ACID TABLET (FP) PO SCH (09:44)
[2021-04-24] MEDS: NICOTINE 10 MG CARTRIDGE (INHALER) IH PRN ×4 (09:45→22:21)
[2021-04-24] MEDS: THIAMINE HCL 100 MG TABLET (FP) PO SCH (21:17)
[2021-04-24] MEDS: traZODone HCL 100 MG TABLET (FP) PO SCH (21:17)
[2021-04-24] MEDS: MELATONIN 5 MG TABLETS PO SCH (21:17)
[2021-04-25] MEDS: hydrOXYzine PAMOATE 25 MG CAPSULE (FP) PO SCH ×6 (06:40→21:44)
[2021-04-25] MEDS: NICOTINE 21 MG/24 HOURS TOPICAL PATCH TD SCH (10:39)
[2021-04-25] MEDS: PRENATAL VITAMINS W/ FOLIC ACID TABLET (FP) PO SCH (10:39)
[2021-04-25] MEDS: NICOTINE 10 MG CARTRIDGE (INHALER) IH PRN ×4 (10:39→21:45)
[2021-04-25] MEDS: THIAMINE HCL 100 MG TABLET (FP) PO SCH (21:43)
[2021-04-25] MEDS: traZODone HCL 100 MG TABLET (FP) PO SCH (21:44)
[2021-04-25] MEDS: MELATONIN 5 MG TABLETS PO SCH (21:44)
[2021-04-26] MEDS: hydrOXYzine PAMOATE 25 MG CAPSULE (FP) PO SCH ×5 (06:47→21:11)
[2021-04-26] MEDS: NICOTINE 21 MG/24 HOURS TOPICAL PATCH TD SCH (09:44)
[2021-04-26] MEDS: PRENATAL VITAMINS W/ FOLIC ACID TABLET (FP) PO SCH (09:44)
[2021-04-26] MEDS: NICOTINE 10 MG CARTRIDGE (INHALER) IH PRN ×3 (09:45→21:11)
[2021-04-26] MEDS: MELATONIN 5 MG TABLETS PO SCH (21:11)
[2021-04-26] MEDS: traZODone HCL 100 MG TABLET (FP) PO SCH (21:11)
[2021-04-26] MEDS: THIAMINE HCL 100 MG TABLET (FP) PO SCH (21:11)
[2021-04-27] MEDS: hydrOXYzine PAMOATE 25 MG CAPSULE (FP) PO SCH ×5 (06:53→21:43)
[2021-04-27] MEDS: PRENATAL VITAMINS W/ FOLIC ACID TABLET (FP) PO SCH (10:03)
[2021-04-27] MEDS: NICOTINE 21 MG/24 HOURS TOPICAL PATCH TD SCH (10:03)
[2021-04-27] MEDS: NICOTINE 10 MG CARTRIDGE (INHALER) IH PRN ×3 (10:04→21:43)
[2021-04-27] MEDS: traZODone HCL 100 MG TABLET (FP) PO SCH (21:43)
[2021-04-27] MEDS: MELATONIN 5 MG TABLETS PO SCH (21:44)
[2021-04-27] MEDS: THIAMINE HCL 100 MG TABLET (FP) PO SCH (21:44)
[2021-04-28] MEDS: hydrOXYzine PAMOATE 25 MG CAPSULE (FP) PO SCH ×5 (06:48→21:11)
[2021-04-28] MEDS: PRENATAL VITAMINS W/ FOLIC ACID TABLET (FP) PO SCH (09:48)
[2021-04-28] MEDS: NICOTINE 21 MG/24 HOURS TOPICAL PATCH TD SCH (09:48)
[2021-04-28] MEDS: NICOTINE 10 MG CARTRIDGE (INHALER) IH PRN ×3 (09:49→21:12)
[2021-04-28] MEDS: MELATONIN 5 MG TABLETS PO SCH (21:11)
[2021-04-28] MEDS: traZODone HCL 100 MG TABLET (FP) PO SCH (21:11)
[2021-04-28] MEDS: THIAMINE HCL 100 MG TABLET (FP) PO SCH (21:12)
[2021-04-29] MEDS: hydrOXYzine PAMOATE 25 MG CAPSULE (FP) PO SCH ×5 (06:55→21:35)
[2021-04-29] MEDS: NICOTINE 10 MG CARTRIDGE (INHALER) IH PRN ×4 (06:56→23:54)
[2021-04-29] MEDS: NICOTINE 21 MG/24 HOURS TOPICAL PATCH TD SCH (10:14)
[2021-04-29] MEDS: PRENATAL VITAMINS W/ FOLIC ACID TABLET (FP) PO SCH (10:14)
[2021-04-29] MEDS: traZODone HCL 100 MG TABLET (FP) PO SCH (21:35)
[2021-04-29] MEDS: MELATONIN 5 MG TABLETS PO SCH (21:36)
[2021-04-29] MEDS: THIAMINE HCL 100 MG TABLET (FP) PO SCH (21:36)
[2021-04-30] MEDS: hydrOXYzine PAMOATE 25 MG CAPSULE (FP) PO SCH (07:03)
[2021-04-30] MEDS: PRENATAL VITAMINS W/ FOLIC ACID TABLET (FP) PO SCH (10:08)
[2021-04-30] MEDS: hydrOXYzine PAMOATE 25 MG CAPSULE (FP) PO PRN ×2 (10:08→21:05)
[2021-04-30] MEDS: NICOTINE 10 MG CARTRIDGE (INHALER) IH PRN ×4 (10:09→21:40)
[2021-04-30] MEDS: NICOTINE 21 MG/24 HOURS TOPICAL PATCH TD SCH (10:09)
[2021-04-30] MEDS: traZODone HCL 100 MG TABLET (FP) PO SCH (21:04)
[2021-04-30] MEDS: MELATONIN 5 MG TABLETS PO SCH (21:04)
[2021-04-30] MEDS: THIAMINE HCL 100 MG TABLET (FP) PO SCH (21:04)
[2021-05-01] MEDS: PRENATAL VITAMINS W/ FOLIC ACID TABLET (FP) PO SCH (10:07)
[2021-05-01] MEDS: hydrOXYzine PAMOATE 25 MG CAPSULE (FP) PO PRN ×2 (10:07→21:31)
[2021-05-01] MEDS: NICOTINE 10 MG CARTRIDGE (INHALER) IH PRN ×3 (10:07→21:32)
[2021-05-01] MEDS: NICOTINE 21 MG/24 HOURS TOPICAL PATCH TD SCH (10:08)
[2021-05-01] MEDS: traZODone HCL 100 MG TABLET (FP) PO SCH (21:31)
[2021-05-01] MEDS: MELATONIN 5 MG TABLETS PO SCH (21:31)
[2021-05-01] MEDS: THIAMINE HCL 100 MG TABLET (FP) PO SCH (21:31)
[2021-05-02] MEDS: hydrOXYzine PAMOATE 25 MG CAPSULE (FP) PO PRN ×2 (09:55→21:08)
[2021-05-02] MEDS: NICOTINE 10 MG CARTRIDGE (INHALER) IH PRN ×3 (09:55→18:01)
[2021-05-02] MEDS: PRENATAL VITAMINS W/ FOLIC ACID TABLET (FP) PO SCH (10:59)
[2021-05-02] MEDS: NICOTINE 21 MG/24 HOURS TOPICAL PATCH TD SCH (11:00)
[2021-05-02] MEDS: MELATONIN 5 MG TABLETS PO SCH (21:08)
[2021-05-02] MEDS: traZODone HCL 100 MG TABLET (FP) PO SCH (21:08)
[2021-05-02] MEDS: THIAMINE HCL 100 MG TABLET (FP) PO SCH (21:08)
[2021-05-03] MEDS: PRENATAL VITAMINS W/ FOLIC ACID TABLET (FP) PO SCH (09:42)
[2021-05-03] MEDS: NICOTINE 21 MG/24 HOURS TOPICAL PATCH TD SCH (09:42)
[2021-05-03] MEDS: hydrOXYzine PAMOATE 25 MG CAPSULE (FP) PO PRN ×2 (09:42→21:56)
[2021-05-03] MEDS: NICOTINE 10 MG CARTRIDGE (INHALER) IH PRN ×3 (09:43→21:55)
[2021-05-03] MEDS: traZODone HCL 100 MG TABLET (FP) PO SCH (21:53)
[2021-05-03] MEDS: THIAMINE HCL 100 MG TABLET (FP) PO SCH (21:54)
[2021-05-03] MEDS: MELATONIN 5 MG TABLETS PO SCH (21:54)
[2021-05-04] MEDS: PRENATAL VITAMINS W/ FOLIC ACID TABLET (FP) PO SCH (10:17)
[2021-05-04] MEDS: hydrOXYzine PAMOATE 25 MG CAPSULE (FP) PO PRN ×2 (10:17→21:07)
[2021-05-04] MEDS: NICOTINE 21 MG/24 HOURS TOPICAL PATCH TD SCH (10:17)
[2021-05-04] MEDS: NICOTINE 10 MG CARTRIDGE (INHALER) IH PRN ×4 (10:18→21:58)
[2021-05-04] MEDS: THIAMINE HCL 100 MG TABLET (FP) PO SCH (21:08)
[2021-05-04] MEDS: traZODone HCL 100 MG TABLET (FP) PO SCH (21:08)
[2021-05-04] MEDS: MELATONIN 5 MG TABLETS PO SCH (21:08)
[2021-05-05] MEDS: NICOTINE 21 MG/24 HOURS TOPICAL PATCH TD SCH (10:06)
[2021-05-05] MEDS: PRENATAL VITAMINS W/ FOLIC ACID TABLET (FP) PO SCH (10:06)
[2021-05-05] MEDS: NICOTINE 10 MG CARTRIDGE (INHALER) IH PRN ×3 (10:06→22:01)
[2021-05-05] MEDS: hydrOXYzine PAMOATE 25 MG CAPSULE (FP) PO PRN ×2 (10:07→21:24)
[2021-05-05] MEDS: traZODone HCL 100 MG TABLET (FP) PO SCH (21:24)
[2021-05-05] MEDS: MELATONIN 5 MG TABLETS PO SCH (21:24)
[2021-05-05] MEDS: THIAMINE HCL 100 MG TABLET (FP) PO SCH (21:24)
[2021-05-06] MEDS: hydrOXYzine PAMOATE 25 MG CAPSULE (FP) PO PRN ×2 (08:39→21:11)
[2021-05-06] MEDS: NICOTINE 21 MG/24 HOURS TOPICAL PATCH TD SCH (09:12)
[2021-05-06] MEDS: NICOTINE 10 MG CARTRIDGE (INHALER) IH PRN ×4 (09:12→23:39)
[2021-05-06] MEDS: PRENATAL VITAMINS W/ FOLIC ACID TABLET (FP) PO SCH (09:12)
[2021-05-06] MEDS: MELATONIN 5 MG TABLETS PO SCH (21:11)
[2021-05-06] MEDS: THIAMINE HCL 100 MG TABLET (FP) PO SCH (21:11)
[2021-05-06] MEDS: traZODone HCL 100 MG TABLET (FP) PO SCH (21:11)
[2021-05-07] MEDS: hydrOXYzine PAMOATE 25 MG CAPSULE (FP) PO PRN ×2 (10:20→21:28)
[2021-05-07] MEDS: PRENATAL VITAMINS W/ FOLIC ACID TABLET (FP) PO SCH (10:20)
[2021-05-07] MEDS: NICOTINE 21 MG/24 HOURS TOPICAL PATCH TD SCH (10:20)
[2021-05-07] MEDS: NICOTINE 10 MG CARTRIDGE (INHALER) IH PRN ×3 (10:21→21:28)
[2021-05-07] MEDS: MELATONIN 5 MG TABLETS PO SCH (21:28)
[2021-05-07] MEDS: THIAMINE HCL 100 MG TABLET (FP) PO SCH (21:28)
[2021-05-07] MEDS: traZODone HCL 100 MG TABLET (FP) PO SCH (21:28)
[2021-05-08] MEDS: PRENATAL VITAMINS W/ FOLIC ACID TABLET (FP) PO SCH (10:40)
[2021-05-08] MEDS: hydrOXYzine PAMOATE 25 MG CAPSULE (FP) PO PRN ×2 (10:40→21:25)
[2021-05-08] MEDS: NICOTINE 21 MG/24 HOURS TOPICAL PATCH TD SCH (10:40)
[2021-05-08] MEDS: NICOTINE 10 MG CARTRIDGE (INHALER) IH PRN ×3 (10:41→21:25)
[2021-05-08] MEDS: traZODone HCL 100 MG TABLET (FP) PO SCH (21:25)
[2021-05-08] MEDS: THIAMINE HCL 100 MG TABLET (FP) PO SCH (21:25)
[2021-05-08] MEDS: MELATONIN 5 MG TABLETS PO SCH (21:25)
[2021-05-09 08:12] VITALS: BP 113/55; PULSE 69; TEMP 97.1
[2021-05-09] MEDS: hydrOXYzine PAMOATE 25 MG CAPSULE (FP) PO PRN (09:14)
[2021-05-09] MEDS: PRENATAL VITAMINS W/ FOLIC ACID TABLET (FP) PO SCH (09:14)
[2021-05-09] MEDS: NICOTINE 21 MG/24 HOURS TOPICAL PATCH TD SCH (09:15)
[2021-05-09] MEDS: NICOTINE 10 MG CARTRIDGE (INHALER) IH PRN (09:15)
== END 2021-05-09 10:09 | disposition home or self-care (01) | DRG 772 ==
LOC: YASAS 11:21 → Y3W 16:41
PROVIDERS: ADMIT Allergy & Immunology; ATTEND Allergy & Immunology
PROC: HZ42ZZZ Group Counseling for Substance Abuse Treatment, Cognitive-Behavioral (ICD-10-PCS; principal; 2021-04-10)
DX: F10.20 Alcohol dependence, uncomplicated (principal); F14.20 Cocaine dependence, uncomplicated; F16.20 Hallucinogen dependence, uncomplicated; F12.20 Cannabis dependence, uncomplicated; F17.210 Nicotine dependence, cigarettes, uncomplicated; F41.9 Anxiety disorder, unspecified; F32.9 Major depressive disorder, single episode, unspecified; F90.9 Attention-deficit hyperactivity disorder, unspecified type; J45.909 Unspecified asthma, uncomplicated; A59.01 Trichomonal vulvovaginitis; Z72.51 High risk heterosexual behavior; Z59.0 Homelessness; Z56.0 Unemployment, unspecified
CPT/HCPCS: 36415; 80053; 81003; 81025; 85027; 86780; 87086; 87389; 87491; 87591; 87661; C9803; U0003; U0005

== ENCOUNTER 2022-08-02 10:20 | Inpatient (IN) | payer OTHER ==
[2022-08-02 12:36] VITALS: BMI 38.4
[2022-08-02] MEDS ORDERED: OXYTOCIN 30 UNITS in 0.9% NS 30 UNIT/500 ML INFUS.BAG IVPB ONE (14:11)
[2022-08-02] MEDS ORDERED: METOCLOPRAMIDE HCL INJECTION 10 MG/2 ML VIAL ONE (14:13)
[2022-08-02] MEDS ORDERED: ONDANSETRON 4 MG/2 ML VIAL ONE (14:13)
[2022-08-02] MEDS ORDERED: ceFAZolin SODIUM 1 GM VIAL ONE (14:13)
[2022-08-02] MEDS ORDERED: PHENYLEPHRINE HCL 10 MG/1 ML SINGLE DOSE VIAL ONE (14:13)
[2022-08-02] MEDS ORDERED: DEXAMETHASONE SOD PHOSPHATE 4 MG/1 ML VIAL ONE (14:13)
[2022-08-02] MEDS ORDERED: CITRIC ACID/SODIUM CITRATE 30 ML UNIT-DOSE CUP PO ONE (14:19)
[2022-08-02] MEDS ORDERED: ELECTROLYTE-148 SOLN 500 ML IV ONE (14:19)
[2022-08-02 14:26] LABS: COCAINE, UR NEGATIVE (NEGATIVE); OPIATES, URI NEGATIVE (NEGATIVE); URINE BARBITURATES NEGATIVE (NEGATIVE); URINE BENZODIAZEPINES NEGATIVE (NEGATIVE)
[2022-08-02 14:28] LABS: METHADONE, UR NEGATIVE (NEGATIVE); PHENCYCLIDINE,URINE NEGATIVE (NEGATIVE); URINE AMPHETAMINES NEGATIVE (NEGATIVE)
[2022-08-02] MEDS ORDERED: morphine SULFATE/PF 1 MG/2 ML (2cc Syringe - QUVA) ONE (14:28)
[2022-08-02] MEDS ORDERED: FENTANYL CITRATE/PF 50 MCG/ML VIAL ONE (14:28)
[2022-08-02] MEDS ORDERED: morphine SULFATE/PF 1 MG/2 ML (2cc Syringe - QUVA) IT ONE (14:47)
[2022-08-02] MEDS ORDERED: ELECTROLYTE-148 SOLN 1,000 ML IV SCH (14:48)
[2022-08-02] MEDS ORDERED: KETOROLAC TROMETHAMINE 30 MG/1 ML VIAL ONE (15:10)
[2022-08-02] MEDS ORDERED: ACETAMINOPHEN 325 MG TABLET (FP) PO PRN ×2 (16:01→16:05)
[2022-08-02] MEDS ORDERED: METHYLERGONOVINE MALEATE 0.2 MG/1 ML AMP IM PRN (16:01)
[2022-08-02] MEDS ORDERED: IBUPROFEN 800 MG/8 ML IJ IVPB PRN (16:01)
[2022-08-02] MEDS ORDERED: ONDANSETRON 4 MG/2 ML VIAL IVPUSH PRN (16:05)
[2022-08-02] MEDS ORDERED: IBUPROFEN 600 MG TABLET (FP) PO PRN (16:05)
[2022-08-02] MEDS ORDERED: OXYTOCIN 20 UNITS in 0.9% NS 20 UNIT/1,000 ML INFUS.BAG IV SCH (16:15)
[2022-08-02] MEDS ORDERED: OXYTOCIN 20 UNITS in 0.9% NS 20 UNIT/1,000 ML INFUS.BAG IV ONE (17:43)
[2022-08-02] MEDS: SIMETHICONE 80 MG TAB.CHEW (FP) PO PRN (19:36)
[2022-08-03] MEDS: SIMETHICONE 80 MG TAB.CHEW (FP) PO PRN ×5 (00:30→19:44)
[2022-08-03] MEDS ORDERED: oxyCODONE HCL 5 MG TABLET PO PRN ×2 (04:01)
[2022-08-03] MEDS: IBUPROFEN 600 MG TABLET (FP) PO PRN ×4 (06:05→22:24)
[2022-08-03] MEDS: FERROUS SO4 325 MG TABLET (FP) PO SCH ×2 (08:13→17:08)
[2022-08-03 09:20] LABS: BASO % 0.3 % (0-2.0); EOS % 0.8 % (0-4.5); HEMATOCRIT 27.6 % (32.4-45.2); LYMPH % 14.9 % (8-40); MCH 27.8 pg (25.7-33.7); MCHC 32.8 g/dl (32.0-36.0); MEAN CELL VOLUME 84.9 fl (80-96); MEAN PLT VOLUME 10.5 fl (7.5-11.1); PLATELET COUNT 110 10^3/uL (134-434); RBC 3.25 M/mm3 (3.60-5.2); WHITE BLOOD COUNT 14.6 K/mm3 (4.0-10.0)
[2022-08-03] MEDS ORDERED: BISACODYL 10 MG SUPP.RECT RC PRN (16:01)
[2022-08-03] MEDS: SENNOSIDES/DOCUSATE COMBO (SENNA PLUS) TABLET (UD) PO PRN (19:44)
[2022-08-03] MEDS ORDERED: traZODone HCL 50 MG TABLET (FP) PO SCH (22:00)
[2022-08-03] MEDS: traZODone HCL 100 MG TABLET (FP) PO SCH (22:24)
[2022-08-04] MEDS: IBUPROFEN 600 MG TABLET (FP) PO PRN ×4 (09:30→22:09)
[2022-08-04] MEDS: SIMETHICONE 80 MG TAB.CHEW (FP) PO PRN ×3 (09:30→17:12)
[2022-08-04] MEDS: FERROUS SO4 325 MG TABLET (FP) PO SCH ×2 (09:30→17:12)
[2022-08-04] MEDS: SENNOSIDES/DOCUSATE COMBO (SENNA PLUS) TABLET (UD) PO PRN (22:08)
[2022-08-04] MEDS: traZODone HCL 100 MG TABLET (FP) PO SCH (22:08)
[2022-08-05] MEDS: IBUPROFEN 600 MG TABLET (FP) PO PRN (05:20)
[2022-08-05] MEDS: SIMETHICONE 80 MG TAB.CHEW (FP) PO PRN (05:20)
[2022-08-05] MEDS: FERROUS SO4 325 MG TABLET (FP) PO SCH (08:37)
[2022-08-05 13:12] VITALS: BP 117/56; PULSE 99; RESP 17; TEMP 98.1
== END 2022-08-05 15:30 | disposition home or self-care (01) | DRG 540 ==
LOC: JLDR 10:20 → J3W 18:15
PROVIDERS: ADMIT Obstetrics & Gynecology; ATTEND Obstetrics & Gynecology
PROC: 10D00Z1 Extraction of Products of Conception, Low, Open Approach (ICD-10-PCS; principal; 2022-08-02)
DX: O34.211 Maternal care for low transverse scar from previous cesarean delivery (principal); O30.043 Twin pregnancy, dichorionic/diamniotic, third trimester; O32.8XX1 Maternal care for other malpresentation of fetus, fetus 1; O32.2XX2 Maternal care for transverse and oblique lie, fetus 2; Z37.2 Twins, both liveborn; Z3A.38 38 weeks gestation of pregnancy
CPT/HCPCS: 36415; 80307; 85025; 88307-TC

== ENCOUNTER 2023-02-21 17:08 | Emergency (ER) | payer OTHER ==
[2023-02-21 17:36] VITALS: RESP 18; BMI 36.6
[2023-02-21] MEDS ORDERED: ONDANSETRON 4 MG/2 ML VIAL IVPUSH ONE (18:26)
[2023-02-21] MEDS ORDERED: ACETAMINOPHEN 1000 MG/100 ML BAG IVPB ONE (18:26)
[2023-02-21] MEDS ORDERED: SODIUM CHLORIDE 1,000 ML IV STA (18:26)
[2023-02-21] MEDS ORDERED: ONDANSETRON 4 MG/2 ML VIAL ONE (18:39)
[2023-02-21] MEDS ORDERED: ACETAMINOPHEN INJECTION 100 ML IVPB ONE (18:39)
[2023-02-21 19:15] LABS: EOS % 0.5 % (0-4.5); HEMATOCRIT 40.1 % (32.4-45.2); HEMOGLOBIN 13.3 GM/dL (10.7-15.3); LYMPH % 10.3 % (8-40); MCH 28.6 pg (25.7-33.7); MCHC 33.1 g/dl (32.0-36.0); MEAN CELL VOLUME 86.5 fl (80-96); MEAN PLT VOLUME 10.5 fl (7.5-11.1); MONO % 6.8 % (3.8-10.2); NEUT % 81.4 % (42.8-82.8); PLATELET COUNT 185 10^3/uL (134-434); RBC 4.64 M/mm3 (3.60-5.2); RDW 13.4 % (11.6-15.6); WHITE BLOOD COUNT 13.7 K/mm3 (4.0-10.0)
[2023-02-21 19:21] LABS: INR 1.15 (0.83-1.09); PROTHROMBIN TIME (PATIENT) 13.3 SEC (9.7-13.0)
[2023-02-21 19:35] LABS: POTASSIUM 4.2 mmol/L (3.5-5.1)
[2023-02-21 19:37] LABS: CALCIUM 8.8 mg/dL (8.5-10.1)
[2023-02-21 19:38] LABS: ALBUMIN 3.7 g/dl (3.4-5.0); BLOOD UREA NITROGEN 10.2 mg/dL (7-18)
[2023-02-21 19:41] LABS: CREATININE 0.6 mg/dL (0.55-1.3)
[2023-02-21 19:43] LABS: BILIRUBIN,TOTAL 0.3 mg/dL (0.2-1)
[2023-02-21 20:33] VITALS: BP 120/76; PULSE 80; TEMP 98.1
== END 2023-02-21 20:33 | disposition home or self-care (01) ==
LOC: JER 17:08
PROC: 3E033NZ Introduction of Analgesics, Hypnotics, Sedatives into Peripheral Vein, Percutaneous Approach (ICD-10-PCS; principal; 2023-02-21)
PROC: 3E033GC Introduction of Other Therapeutic Substance into Peripheral Vein, Percutaneous Approach (ICD-10-PCS; 2023-02-21)
PROC: 3E0337Z Introduction of Electrolytic and Water Balance Substance into Peripheral Vein, Percutaneous Approach (ICD-10-PCS; 2023-02-21)
DX: O04.80 (Induced) termination of pregnancy with unspecified complications (principal); O21.9 Vomiting of pregnancy, unspecified; O26.891 Other specified pregnancy related conditions, first trimester; R10.2 Pelvic and perineal pain; Z3A.08 8 weeks gestation of pregnancy
CPT/HCPCS: 36415; 80053; 84702; 85025; 85610; 85730; 86850; 86900; 86901; 96361; 96374; 96375; 99284-25